=== PATIENT | female | born 1975 | race Caucasian/White ===

== ENCOUNTER 2016-11-26 07:39 | Emergency (ER) | payer MEDICAID ==
--- NOTE | 2016-11-26 08:15 | ERNOTE ---
Lower Extremity HPI - Narrative Date of Service: 11/26/16 - 08:11 - General Lower Extremities Pain: foot: right Time Seen by Provider: 11/26/16 08:11 Source: patient Exam Limitations: no limitations - Immun/Allergies/Home Medications Immunizations: IMMUNIZATION HX Immunizations Up to Date No History of Influenza Vaccine No Hx Pneumococcal Vaccination No Home Medications: HOME MEDICATIONS Naproxen [Naprosyn] 500 mg PO BID #60 tablet 11/26/16 [Last Taken Unknown] - History of Present Illness Narrative: Patient was going down the stairs this morning, and slipped on one of the stairs and apparently got her right foot caught up underneath her causing abrasion to the top of the right foot and on the anterior alejandro area. He simply describes the pain as somewhat burning and perhaps 5 or 6 in intensity. Occurred: just prior to arrival Location of Incident: home Reason for Fall: Reports: tripped Loss of Consciousness: Reports: no loss of consciousness Associated Symptoms: Reports: other injuries - painful to touch Other Injuries: Reports: none Review of Systems - Review of Systems Constitutional: Present: See HPI EYE: Present: no symptoms reported ENT: Present: no symptoms reported Respiratory: Present: no symptoms reported Cardiology: Present: no symptoms reported Gastrointestinal/Abdominal: Present: no symptoms reported Genitourinary: Present: no symptoms reported Musculoskeletal: Present: See HPI Skin: Present: See HPI Neurological: Present: no symptoms reported Endocrine: Present: no symptoms reported Hematologic/Lymphatic: Present: no symptoms reported Psych: Present: no symptoms reported - Patient's Past Medical History Patient History - Medical: No pertinent hx Patient History - Cardiac/Respiratory: No pertinent hx Patient History - Cancer: No Hx of Cancer Patient History - Surgical Procedures: Patient History - Other: None LMP (Calendar): 11/13/16 - Social History Living Situations: alone Abuse History: No History of abuse Psych History: Hx of Anxiety, Hx of Depression Smoking Status: Current every day smoker Alcohol Use: none Drug Use: none - Immunizations Immunizations Up to Date: No Hx Pneumococcal Vaccination: No History of Influenza Vaccine: No Physical Exam - Physical Exam General Appearance: Present: wd/wn, alert, moderate distress Eye Exam: Normal inspection: bilateral, PERRL: bilateral Ears, Nose, Throat: Present: normal ENT inspection, H, normal pharynx Neck: Present: normal inspection, nontender Respiratory: Present: no respiratory distress, normal breath sounds, no accessory muscle use, chest nontender, lungs clear Cardiovascular/Chest: Present: regular rate, rhythm, no murmur, normal peripheral pulses Gastrointestinal/Abdominal: Present: normal bowel sounds, nontender, nondistended, soft, no organomegaly Rectal Exam: Present: deferred Back Exam: Present: normal inspection, normal range of motion Extremity Exam: Present: normal inspection, non-tender, no edema, normal range of motion Neurological Exam: Present: alert, oriented, normal mood/affect Skin Exam: Present: normal color, other - abrasion to the top of the right foot and the anterior alejandro Lymphatic Exam: Present: no adenopathy ED Progress - Vital Signs Patient's Vital Signs:: I have reviewed the patient's vital signs. Vital Signs: Vital Signs 11/26/16 07:40 Temperature 36.9 C Pulse Rate 100 Respiratory 14 Rate Blood Pressure 109/68 O2 Sat by Pulse 100 Oximetry - X-Ray X-Ray #1 X-Ray: leg Interpretation: Reviewed by me - Progress/Reassessment Chief Complaint: Lower Extremity Pain/ Injury Progress:: Unchanged Plan - Plan Plan: I suspect the patient may have a sprain component to this injury as well. We will place antibiotic ointment on the wound and give patient an Shane wrap and some nonsteroidals for pain. She'll be instructed to follow-up with her family physician in 7-10 days. Departure Clinical Impression: Abrasion Ankle sprain Qualifiers: Encounter type: initial encounter Involved ligament of ankle: unspecified ligament Laterality: right Qualified Code(s): S93.401A - Sprain of unspecified ligament of right ankle, initial encounter - Departure Disposition: Home self-care Condition: Good Instructions: Abrasion, [id number], Ankle Sprain, [id number] Prescriptions: Naproxen [Naprosyn] 500 mg PO BID #60 tablet
--- OUTSIDE RECORDS SUMMARY | 2016-11-26 08:27 | XMS REPORT | Continuity of Care Document ---
:1975 Author Organization [facility] [place] [address] Care Team Providers Name Role Phone GrabielJovanny Jr. Primary Care Provider [phone] Source Comments This disclosure is being made pursuant to the [employer] program and maynot contain all information available regarding this patient.[facility] Active Allergies and Adverse Reactions No Known Allergies Current Medications Be aware that medications may not be up to date as of this document. Alwaysverify current medications with the patient. Prescription Sig. Disp. Refills Start Date End Date Status HYDROcodone-acetaminophe Take 1-2 tablets 30 tablet 0 08/20/2014 Active n (NORCO) 5-325 MG per by mouth every 4 tablet (four) hours as needed for Pain. cyclobenzaprine Take 0.5 tablets 30 tablet 0 08/20/2014 Active (FLEXERIL) 10 MG tablet by mouth 3 (three) times daily as needed for Muscle spasms. ibuprofen (ADVIL,MOTRIN) Take 1 tablet by 30 tablet 0 08/20/2014 Active 800 MG tablet mouth every 6 (six) hours as needed for Pain. Active Problems Not on file Social History Tobacco Use Types Packs/Day Years Used Date Current Every Day Smoker Cigarettes 0.5 Smokeless Tobacco: Never Used Alcohol Use Drinks/Week oz/Week Comments Yes onn Last Filed Vital Signs Vital Sign Reading Time Taken Blood Pressure 141/83 08/20/2014 3:16 PM [employer] [facility] Pulse 102 08/20/2014 3:16 PM [employer] [facility] Temperature 36.5 C (97.7 F) 08/20/2014 3:16 PM [employer] [facility] Respiratory Rate 16 08/20/2014 3:16 PM [employer] [facility] Height - - Weight - - Body Mass Index - - Oxygen Saturation 99% 08/20/2014 3:16 PM [employer] [facility] Plan of Care Health Maintenance Due Date Last Done Comments Tetanus/Pertussis (1 - Tdap) 1994 Pap Smear 1996 Retired-INFLUENZA VACCINE 05/01/2015 Mammogram 2015 Results from Last 3 Months Not on file
--- OUTSIDE RECORDS SUMMARY | 2016-11-26 08:28 | XMS REPORT | Continuity of Care Document ---
:1975 Author Organization [facility] ([facility]) Address [place] [address] Phone [phone] Care Team Providers Name Role Phone [place], [place] Primary Care Provider [phone] Source Comments This disclosure is being made pursuant to the Care Everywhere program, applicable federal and state laws, and may not contain all informaitonavailable regarding this patient.[facility] ([facility]) Active Allergies and Adverse Reactions No Known Allergies Current Medications Prescription Sig. Disp. Refills Start Date End Date Status citalopram (CELEXA) 40 take 40 mg by mouth Active mg tablet daily. OTHER take 2 Tabs by mouth Active 3 times daily. Hydroxycut Active Problems Problem Noted Date Syncope and collapse 01/29/2009 Social History Tobacco Use Types Packs/Day Years Used Date Current Every Day Smoker Cigarettes 0.5 20 Tobacco Cessation:Ready to Quit: Yes; Counseling Given: Yes Comments: Last Filed Vital Signs Vital Sign Reading Time Taken Blood Pressure 116/58 09/08/2011 9:44 AM HOME HOSPICE RN Pulse 81 09/08/2011 9:44 AM HOME HOSPICE RN Temperature 36 C (96.8 F) 09/08/2011 9:44 AM HOME HOSPICE RN Respiratory Rate - - Height 1.765 m (5' 9.5") 09/08/2011 9:44 AM HOME HOSPICE RN Weight 107.956 kg (238 lb) 09/08/2011 9:44 AM HOME HOSPICE RN Body Mass Index 34.65 09/08/2011 9:44 AM HOME HOSPICE RN Oxygen Saturation - - Plan of Care Health Maintenance Due Date Last Done Comments Hepatitis B Vaccine (1 of 3 - Primary Series) 1975 Tdap Vaccine 1986 Lipid Disorder Screening 1993 MMR Vaccine 1993 Td Vaccine 1993 Pneumococcal Vaccine (1 of 1 - PPSV23) 1994 Cervical Cancer Screening 2005 Mammogram 2015 Influenza Vaccine: Seasonal (#1) 03/31/2016 Results from Last 3 Months Not on file
[2016-11-26 08:39] VITALS: BP 127/59
== END 2016-11-26 08:40 | disposition home or self-care (01) ==
LOC: ER 07:39
DX: S93.401A Sprain of unspecified ligament of right ankle, initial encounter (principal); S90.811A Abrasion, right foot, initial encounter; W10.9XXA Fall (on) (from) unspecified stairs and steps, initial encounter; F17.210 Nicotine dependence, cigarettes, uncomplicated